=== PATIENT | male | born 1940 | race American Indian/Alaskan Native ===

== ENCOUNTER 2019-08-19 10:32 | Inpatient (IN) | payer MEDICARE, OTHER ==
[2019-08-19 12:01] LABS: Basophils # (Auto) 0.1 K/mm3 (0.0-0.1); Basophils % (Auto) 0.3 % (0.0-1.8); Eosinophils % (Auto) 0.1 % (0.0-4.3); Hematocrit 41.6 % (35.5-45.6); Hemoglobin 13.8 gm/dl (11.8-15.2); Lymphocytes # (Auto) 1.8 K/mm3 (1.2-5.4); Lymphocytes % (Auto) 10.1 % (13.4-35.0); Mean Corpuscular HGB Conc 33 % (32-34); Mean Corpuscular Volume 85 fl (84-94); Monocytes # (Auto) 2.1 K/mm3 (0.0-0.8); Monocytes % (Auto) 12.2 % (0.0-7.3); Platelet Count 147 K/mm3 (140-440); Red Blood Count 4.89 M/mm3 (3.65-5.03); Red Cell Distribution Width 13.3 % (13.2-15.2)
[2019-08-19 12:21] LABS: Alanine Aminotransferase 19 units/L (7-56); Albumin 3.8 g/dL (3.9-5); BUN/Creatinine Ratio 10; Blood Urea Nitrogen 11 mg/dL (9-20); Calcium 9.6 mg/dL (8.4-10.2); Hemolysis Index 11
--- NOTE | 2019-08-19 12:47 | XRay Report ---
CHEST 1 VIEW INDICATION: hypertension. COMPARISON: None FINDINGS: Support devices: None. Heart: Within normal limits. Lungs/Pleura: No acute air space or interstitial disease. Additional findings: None. IMPRESSION: No acute findings. Signer Name: Desean Cody Jr, MD Signed: 08/19/2019 12:43 PM Workstation Name: [id number]
[2019-08-19 14:01] LABS: Partial Thromboplastin Time 29.6 Sec. (24.2-36.6)
--- NOTE | 2019-08-19 14:12 | Cat Scan Report ---
CT ABDOMEN AND PELVIS WITH CONTRAST HISTORY: RLQ pain , lower GI bleed, leukocytosis, blood in stool for 2 days COMPARISON: None. TECHNIQUE: Axial CT images were obtained through the abdomen and pelvis after 100 cc of Omnipaque 300 intravenously. Sagittal and coronal reformatted images. All CT scans at this location are performed using CT dose reduction for ALARA by means of automated exposure control. FINDINGS: CT ABDOMEN: Lung Bases: Clear. Liver: No significant abnormality. Biliary: No significant abnormality. Spleen: No significant abnormality. Unenlarged. Pancreas: No significant abnormality. Adrenals: No significant abnormality. Kidneys: A 2 cm cyst is noted in the mid left kidney. A 4 mm calyceal stone is identified in the mid right kidney. No mass or hydronephrosis. Lymphatics: No lymphadenopathy. Vasculature: Moderate diffuse aortic and iliac calcifications. No aneurysm. Bowel/Peritoneum: There is suggestion of mild circumferential thickening of the distal transverse and proximal descending colon. A mild colitis could be considered. There is no evidence for obstruction or diverticulitis. There are a few scattered diverticula in the sigmoid region. Appendix is not confi dently identified. CT PELVIS: : The bladder and distal ureters are unremarkable. The prostate gland is mildly enlarged measuring 5.6 cm in diameter. Osseous Structures: Mild thoracolumbar spondylosis. Additional Findings: None IMPRESSION: Mild circumferential thickening of the distal colon is identified as described above suggesting a mil d nonspecific colitis. No obvious mass. Nonobstructing right renal stone. Left renal cyst. Atherosclerotic disease in the aorta and iliac arteries. Enlarged prostate gland. Signer Name: Desean Cody Jr, MD Signed: 08/19/2019 2:07 PM Workstation Name: [id number]
--- NOTE | 2019-08-19 14:13 | History and Physical Report ---
History of Present Illness Chief complaint: I see blood when I go to the bathroom History of present illness: 78-year-old male with HTN, DM S/P agent orange exposure presents to ED for evaluation. Patient states that he had experienced 6 episodes of blood in his stool over the past 3 days with increased volume of blood in his stool over the past 1 day. Patient also acknowledges generalized weakness, and multiple loose stools over the past 3 days with concomitant abdominal cramping. Patient transported to [facility] via private vehicle. Patient seen and evaluated in the ED. Lab and imaging studies reviewed. Patient found to have heme positive stool as well as symptoms consistent with lower GI bleed, colitis, systemic inflammatory response syndrome, as well as history of agent orange exposure during the [place]. Patient admitted to [facility] unit for medical stabilization due to high risk of decompensation secondary to worsening GI bleed. GI team consulted in ED. Patient initiated on PPI therapy as well as empiric IV antibiotic therapy.. Patient denies fever, chills, chest pain, palpitations, trauma, productive cough, skin rash, recent ill contacts. No prior admission for review. All medication listed at time of admission have been reconciled. Past History Past Medical History: diabetes, hypertension, other (Agent orange exposure, see HPI) Past Surgical History: No surgical history, Other Social history: . denies: smoking, alcohol abuse, prescription drug abuse Family history: diabetes, hypertension Medications and Allergies Allergies Allergy/AdvReac Type Severity Reaction Status Date / Time No Known Allergies Allergy Unverified 08/19/19 10:40 Home Medications Medication Instructions Recorded Confirmed Last Taken Type Amlodipine Besylate [Norvasc] 10 mg PO QDAY 08/19/19 08/19/19 08/18/19 History Aspirin 325 mg PO QDAY 08/19/19 08/19/19 08/18/19 History Doxycycline Hyclate [Doxycycline 100 mg PO Q12HR 08/19/19 08/19/19 08/18/19 History Hyclate TAB] Losartan [Cozaar] 50 mg PO QDAY 08/19/19 08/19/19 08/18/19 History Triamcinolone Aceton 0.1% (Nf) 1 applic TP BID 08/19/19 08/19/19 08/18/19 History [Kenalog (NF)] Review of Systems Constitutional: no weight loss, no weight gain, no fever, no chills Ears, nose, mouth and throat: no ear pain, no ear discharge, no tinnitis, no decreased hearing, no nasal congestion, no nasal discharge Cardiovascular: no chest pain, no rapid/irregular heart beat, no edema, no syncope, no lightheadedness Respiratory: no cough, no cough with sputum, no excessive sputum, no shortness of breath, no dyspnea on exertion Gastrointestinal: BRBPR, no abdominal pain, no nausea, no vomiting, no loss of appetite, no early satiety Genitourinary Male: no dysuria, no hematuria, no flank pain, no discharge, no urinary frequency, no urinary hesitancy Rectal: no pain, no incontinence, no itching, no hemorrhoids Musculoskeletal: no neck stiffness, no neck pain, no low back pain, no shooting leg pain, no redness of joints Integumentary: no rash, no pruritis, no redness, no sores, no wounds Neurological: no head injury, no transient paralysis, no paralysis, no weakness, no parathesias, no tingling, no seizures, no syncope Psychiatric: no anxiety, no change in sleep habits, no sleep disturbances, no hypersomnia, no change in appetite, no change in libido, no hallucinations Endocrine: no cold intolerance, no polyphagia, no excessive thirst, no polydipsia, no nocturia, no excessive sweating, no weight change Hematologic/Lymphatic: no easy bleeding, no lymphadenopathy, no lymphedema Allergic/Immunologic: no urticaria, no allergic rhinitis, no anaphylaxis Exam - Constitutional Vitals: Temp Pulse Resp BP Pulse Ox 97.4 F L 82 16 141/75 95 08/19/19 10:41 08/19/19 13:00 08/19/19 13:00 08/19/19 13:00 08/19/19 13:00 General appearance: Present: mild distress - EENT Eyes: Present: PERRL ENT: hearing intact, clear oral mucosa - Neck Neck: Present: supple, normal ROM - Respiratory Respiratory effort: normal Respiratory: bilateral: CTA - Cardiovascular Heart Sounds: Present: S1 & S2. Absent: rub, click - Extremities Extremities: pulses symmetrical, No edema Peripheral Pulses: within normal limits - Abdominal General gastrointestinal: Present: soft, non-tender, non-distended, normal bowel sounds Male genitourinary: Present: normal - Integumentary Integumentary: Present: clear, warm, dry - Musculoskeletal Musculoskeletal: gait normal, strength equal bilaterally - Psychiatric Psychiatric: appropriate mood/affect, intact judgment & insight - Neurologic Neurologic: CNII-XII intact, moves all extremities Results - Labs CBC & Chem 7: 08/19/19 11:21 08/19/19 11:21 Labs: Abnormal lab results 08/19/19 08/19/19 Range/Units 11:21 11:21 WBC 17.6 H (4.5-11.0) K/mm3 Lymph % (Auto) 10.1 L (13.4-35.0) % [place] % (Auto) 12.2 H (0.0-7.3) % [place] # 2.1 H (0.0-0.8) K/mm3 Seg Neutrophils % 77.3 H (40.0-70.0) % Seg Neutrophils # 13.6 H (1.8-7.7) K/mm3 Sodium 135 L (137-145) mmol/L Glucose 245 H (75-100) mg/dL Albumin 3.8 L (3.9-5) g/dL Assessment and Plan - Patient Problems (1) GI bleed Current Visit: Yes Status: Acute Plan to address problem: Admit to [facility] unit, serial CBC, IV PPI therapy, GI consulted in ED, empiric IV antibiotic therapy, supportive care. Will transfuse PRBCs if patient hemoglobin drops more than 2 g on serial CBC. (2) Colitis Current Visit: Yes Status: Acute Plan to address problem: Empiric IV antibiotic therapy, supportive care. Repeat CBC in a.m. GI consulted. (3) Systemic inflammatory response syndrome Current Visit: Yes Status: Acute Plan to address problem: IV antibiotic therapy, CBC, CMP, IV fluid resuscitation therapy as tolerated, repeat CBC in a.m., Chest x-ray, urinalysis. (4) DVT prophylaxis Current Visit: Yes Status: Acute Plan to address problem: SCD to bilateral lower extremities while in bed, hold anticoagulation for now due to GI bleed (5) Advance care planning Current Visit: Yes Status: Acute Plan to address problem: Patient is full code, disease education conducted at bedside, patient acknowledges understanding and agreement with care plan, +30 minutes. (6) H/O agent [place] exposure Current Visit: Yes Status: Acute Plan to address problem: Supportive care, treat diabetes mellitus.
[2019-08-19] MEDS ORDERED: HYDROmorphone 1 MG/1 ML INJ IV PRN (14:14)
[2019-08-19] MEDS ORDERED: ALBUTEROL 2.5 MG/3 ML NEBU IH PRN (14:14)
[2019-08-19] MEDS ORDERED: ONDANSETRON 4 MG/2 ML INJ IV PRN (14:14)
[2019-08-19] MEDS ORDERED: HYDROcodone/ACETAMINOPHEN 5-325 MG TAB PO PRN (14:14)
[2019-08-19] MEDS ORDERED: ACETAMINOPHEN 325 MG TAB PO PRN (14:14)
[2019-08-19 14:32] LABS: INR 1.16 (0.87-1.13)
[2019-08-19 14:33] LABS: Bilirubin,Urine NEG (Negative); Blood,Urine NEG (Negative); Color,Urine Straw (Yellow); Protein,Urine <15 mg/dL mg/dL (Negative); RBC,Urine < 1.0 /HPF (0.0-6.0); Urobilinogen,Urine < 2.0 mg/dL (<2.0); WBC,Urine < 1.0 /HPF (0.0-6.0)
--- NOTE | 2019-08-19 14:38 | Emergency Department Report ---
ED Abdominal Pain HPI - General Chief Complaint: GI Bleed Stated Complaint: BLOOD IN STOOL Time Seen by Provider: 08/19/19 12:01 Source: patient Mode of arrival: Ambulatory Limitations: No Limitations - History of Present Illness Initial Comments: This is a very pleasant 78-year-old male who is a bit scattered in the delivery of his history of the present illness. Makes persistent status to his time in [place] in the 70s. 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 He states that he often has to rub the right lower quadrant of his abdomen due to the keloid formation. He does finally state that he is here because he has had signs of blood in his stool for the past 3 days. He also complains of diarrhea during that period. He describes a dull ache in the right lower quadrant area which appears to be more than his usual discomfort as described above secondary to keloid. He denies fever or chills. Patient states that he did have a colonoscopy about 2 years ago with a polypectomy. He gives no history of colon cancer. Eyes a known history of diverticular disease. MD Complaint: abdominal pain -: Gradual, days(s) Location: RLQ Radiation: none Migration to: no migration Severity: moderate Severity scale (0 -10): 0 Quality: aching Consistency: intermittent Improves With: nothing Worsens With: nothing Context: other (diarrhea) Associated Symptoms: denies other symptoms, diarrhea, hematochezia Treatments Prior to Arrival: other (denies anticoagulants) - Related Data Home Medications Medication Instructions Recorded Confirmed Last Taken Amlodipine Besylate [Norvasc] 10 mg PO QDAY 08/19/19 08/19/19 08/18/19 Aspirin 325 mg PO QDAY 08/19/19 08/19/19 08/18/19 Doxycycline Hyclate [Doxycycline 100 mg PO Q12HR 08/19/19 08/19/19 08/18/19 Hyclate TAB] Losartan [Cozaar] 50 mg PO QDAY 08/19/19 08/19/19 08/18/19 Triamcinolone Aceton 0.1% (Nf) 1 applic TP BID 08/19/19 08/19/19 08/18/19 [Kenalog (NF)] Allergies Allergy/AdvReac Type Severity Reaction Status Date / Time No Known Allergies Allergy Unverified 08/19/19 10:40 ED Review of Systems ROS: Stated complaint: BLOOD IN STOOL Other details as noted in HPI Constitutional: denies: chills, fever Eyes: denies: eye pain, eye discharge, vision change ENT: denies: ear pain, throat pain Respiratory: denies: cough, shortness of breath, wheezing Cardiovascular: denies: chest pain, palpitations Endocrine: no symptoms reported Gastrointestinal: abdominal pain, diarrhea. denies: nausea Genitourinary: denies: urgency, dysuria Musculoskeletal: denies: back pain, joint swelling, arthralgia Skin: denies: rash, lesions Neurological: denies: headache, weakness, paresthesias Psychiatric: denies: anxiety, depression Hematological/Lymphatic: denies: easy bleeding, easy bruising ED Past Medical Hx - Past Medical History Previous Medical History?: Yes Hx Hypertension: Yes Hx Diabetes: Yes - Surgical History Additional Surgical History: appendectomy - Social History Smoking Status: Never Smoker - Medications Home Medications: Home Medications Medication Instructions Recorded Confirmed Last Taken Type Amlodipine Besylate [Norvasc] 10 mg PO QDAY 08/19/19 08/19/19 08/18/19 History Aspirin 325 mg PO QDAY 08/19/19 08/19/19 08/18/19 History Doxycycline Hyclate [Doxycycline 100 mg PO Q12HR 08/19/19 08/19/19 08/18/19 History Hyclate TAB] Losartan [Cozaar] 50 mg PO QDAY 08/19/19 08/19/19 08/18/19 History Triamcinolone Aceton 0.1% (Nf) 1 applic TP BID 08/19/19 08/19/19 08/18/19 History [Kenalog (NF)] ED Physical Exam - General Limitations: No Limitations General appearance: alert, in no apparent distress - Head Head exam: Present: atraumatic, normocephalic - Eye Eye exam: Present: normal appearance. Absent: scleral icterus - ENT ENT exam: Present: mucous membranes moist - Neck Neck exam: Present: normal inspection - Respiratory Respiratory exam: Present: normal lung sounds bilaterally. Absent: respiratory distress - Cardiovascular Cardiovascular Exam: Present: regular rate, normal rhythm. Absent: systolic murmur, diastolic murmur, rubs, gallop - GI/Abdominal GI/Abdominal exam: Present: soft, tenderness (no significant tenderness to palpation in the right lower quadrant), normal bowel sounds. Absent: distended, guarding, rebound, rigid - Rectal Rectal exam: Present: deferred - Extremities Exam Extremities exam: Present: normal inspection - Back Exam Back exam: Present: normal inspection - Neurological Exam Neurological exam: Present: alert, oriented X3, CN II-XII intact. Absent: motor sensory deficit - Psychiatric Psychiatric exam: Present: normal affect, normal mood - Skin Skin exam: Present: warm, dry, intact, other (he will information on the chest and the right lower quadrant of the abdomen associated with previous appendectomy.). Absent: rash ED Course Vital Signs 08/19/19 08/19/19 08/19/19 10:41 11:20 11:21 Temperature 97.4 F L Pulse Rate 91 H 79 76 Respiratory 16 12 16 Rate Blood Pressure 117/43 Blood Pressure 120/54 [Left] O2 Sat by Pulse 97 99 Oximetry 08/19/19 08/19/19 08/19/19 11:30 11:45 12:00 Temperature Pulse Rate 75 69 71 Respiratory 18 17 22 Rate Blood Pressure 125/61 139/65 147/74 Blood Pressure [Left] O2 Sat by Pulse 97 98 98 Oximetry 08/19/19 08/19/19 08/19/19 12:15 12:30 12:46 Temperature Pulse Rate 80 73 84 Respiratory 12 15 23 Rate Blood Pressure 141/75 131/65 141/75 Blood Pressure [Left] O2 Sat by Pulse 99 97 97 Oximetry 08/19/19 08/19/19 08/19/19 13:00 13:16 13:38 Temperature Pulse Rate 82 75 90 Respiratory 16 12 Rate Blood Pressure 141/75 141/75 141/75 Blood Pressure [Left] O2 Sat by Pulse 95 99 98 Oximetry 08/19/19 08/19/19 08/19/19 13:46 14:00 14:18 Temperature Pulse Rate 77 72 Respiratory 15 14 Rate Blood Pressure 141/75 141/75 141/75 Blood Pressure [Left] O2 Sat by Pulse 96 96 97 Oximetry - Reevaluation(s) Reevaluation #1: Patient was referred to Dr. Moreno further care and evaluation. He was found to have a white count 17.6. His hemoglobin was 13.8. His rectal exam showed no mass but there was 3-4+ positive brown loose stool. His CT was consistent with mild colitis. He was given Flagyl by Dr. Moreno and admitted. I will order a C. difficile. 08/19/19 14:37 ED Medical Decision Making - Lab Data Result diagrams: 08/19/19 11:21 08/19/19 11:21 Laboratory Results - last 24 hr 08/19/19 08/19/19 08/19/19 11:21 11:21 11:25 WBC 17.6 H RBC 4.89 Hgb 13.8 Hct 41.6 MCV 85 MCH 28 MCHC 33 RDW 13.3 Plt Count 147 Lymph % (Auto) 10.1 L [place] % (Auto) 12.2 H Eos % (Auto) 0.1 Baso % (Auto) 0.3 Lymph # 1.8 Cassia # 2.1 H Eos # 0.0 Baso # 0.1 Seg Neutrophils % 77.3 H Seg Neutrophils # 13.6 H PT INR APTT Sodium 135 L Potassium 4.2 Chloride 98.8 Carbon Dioxide 22 Anion Gap 18 BUN 11 Creatinine 1.1 Estimated GFR > 60 BUN/Creatinine Ratio 10 Glucose 245 H Lactic Acid Calcium 9.6 Magnesium Total Bilirubin 0.70 AST 22 ALT 19 Alkaline Phosphatase 63 NT-Pro-B Natriuret Pep Total Protein 6.9 Albumin 3.8 L Albumin/Globulin Ratio 1.2 Blood Type A POSITIVE Antibody Screen Negative 08/19/19 08/19/19 08/19/19 12:57 12:57 12:57 WBC RBC Hgb Hct MCV MCH MCHC RDW Plt Count Lymph % (Auto) [place] % (Auto) Eos % (Auto) Baso % (Auto) Lymph # Cassia # Eos # Baso # Seg Neutrophils % Seg Neutrophils # PT 15.0 H INR 1.16 H APTT 29.6 Sodium Potassium Chloride Carbon Dioxide Anion Gap BUN Creatinine Estimated GFR BUN/Creatinine Ratio Glucose Lactic Acid 1.90 Calcium Magnesium 2.30 Total Bilirubin AST ALT Alkaline Phosphatase NT-Pro-B Natriuret Pep 429.6 Total Protein Albumin Albumin/Globulin Ratio Blood Type Antibody Screen - Radiology Data Radiology results: report reviewed Mild colitis (colon thickening) no other inflammatory processes found on CT. Critical care attestation.: If time is entered above; I have spent that time in minutes in the direct care of this critically ill patient, excluding procedure time. ED Disposition Clinical Impression: Colitis, Lower GI bleeding Disposition: DC OP ADMIT IP TO THIS HOSP Is pt being admited?: Yes Does the pt Need Aspirin: No (hold aspirin due to GI bleeding)
[2019-08-19] MEDS: metroNIDAZOLE/NS 500 MG/100 ML 500 MG/100 ML BAG IV SCH (22:39)
[2019-08-19] MEDS: PANTOPRAZOLE 40 MG INJ IV SCH (22:40)
[2019-08-20 06:05] LABS: Basophils # (Auto) 0.1 K/mm3 (0.0-0.1); Basophils % (Auto) 0.6 % (0.0-1.8); Eosinophils # (Auto) 0.1 K/mm3 (0.0-0.4); Eosinophils % (Auto) 0.8 % (0.0-4.3); Hematocrit 40.7 % (35.5-45.6); Hemoglobin 13.6 gm/dl (11.8-15.2); Lymphocytes # (Auto) 2.1 K/mm3 (1.2-5.4); Lymphocytes % (Auto) 17.4 % (13.4-35.0); Mean Corpuscular HGB Conc 33 % (32-34); Mean Corpuscular Volume 85 fl (84-94); Monocytes # (Auto) 1.6 K/mm3 (0.0-0.8); Monocytes % (Auto) 13.2 % (0.0-7.3); Platelet Count 138 K/mm3 (140-440); Red Cell Distribution Width 13.6 % (13.2-15.2)
[2019-08-20 06:21] LABS: Alanine Aminotransferase 17 units/L (7-56); Albumin 3.3 g/dL (3.9-5); BUN/Creatinine Ratio 12; Blood Urea Nitrogen 12 mg/dL (9-20); Hemolysis Index 14
[2019-08-20] MEDS: metroNIDAZOLE/NS 500 MG/100 ML 500 MG/100 ML BAG IV SCH ×3 (06:22→23:13)
[2019-08-20] MEDS: TRIAMCINOLONE ACETON 0.1% TP SCH ×2 (07:34→10:00)
[2019-08-20] MEDS ORDERED: DEXTROSE 50% IN WATER (25GM) 50 ML SYRINGE IV PRN (08:57)
--- NOTE | 2019-08-20 09:36 | Progress Note ---
Assessment and Plan Assessment and plan: 78-year-old male with HTN, DM S/P agent orange exposure presents to ED for evaluation. Patient states that he had experienced 6 episodes of blood in his stool over the past 3 days with increased volume of blood in his stool over the past 1 day. Patient also acknowledges generalized weakness, and multiple loose stools over the past 3 days with concomitant abdominal cramping. Patient transported to [facility] via private vehicle. Patient seen and evaluated in the ED. Lab and imaging studies reviewed. Patient found to have heme positive stool as well as symptoms consistent with lower GI bleed, colitis, systemic inflammatory response syndrome, as well as history of agent orange exposure during the War. Patient admitted to [facility] unit for medical stabilization due to high risk of decompensation secondary to worsening GI bleed. GI team consulted in ED. Patient initiated on PPI therapy as well as empiric IV antibiotic therapy.. Patient denies fever, chills, chest pain, palpitations, trauma, productive cough, skin rash, recent ill contacts. No prior admission for review. All medication listed at time of admission have been reconciled. Radiology results: report reviewed Mild colitis (colon thickening) no other inflammatory processes found on CT. * WBC improving, no further diarhea or vomiting but the patient has not been started on diet * Will start on diet and monitor patient overnight, if remains stable will discharge with 14 days abx therapy and outpatient GI eval for colonosocopy Colitis Likely Infectious GI bleed likely secondary to the Colitis, H/H Has remained stable SIRS without organ dysfunction DM with Hyperglycemia H/O agent [place] exposure Mild Dementia per patient Plan Continue supportive care Patient on NOVASTAR 36 units subq at home per patient will start on lantus start full liquid Await GI eval Continue abx Monitor H/H, repeat if profound bleeding noted Anticipate discharge in am if stable Plan of care discussed with the patient and Nursing staff. No family at bedside History Interval history: Patient seen and examined, reports improvement in abdominal bloating but still with a 5/10 pain. Denies any fever, reports large vomiting prior to admission. No BM since admission per nursing staff. Hospitalist Physical - Physical exam Narrative exam: General appearance: Present: mild distress - EENT Eyes: Present: PERRL ENT: hearing intact, clear oral mucosa - Neck Neck: Present: supple, normal ROM - Respiratory Respiratory effort: normal Respiratory: bilateral: CTA - Cardiovascular Heart Sounds: Present: S1 & S2. Absent: rub, click - Extremities Extremities: pulses symmetrical, No edema Peripheral Pulses: within normal limits - Abdominal General gastrointestinal: Present: soft, mildly distended but better per patient, normal bowel sounds Male genitourinary: Present: normal - Integumentary Integumentary: Present: clear, warm, dry, Abdominal keloids, Suprapubic and across the chest - Musculoskeletal Musculoskeletal: gait normal, strength equal bilaterally - Psychiatric Psychiatric: appropriate mood/affect, intact judgment & insight - Neurologic Neurologic: CNII-XII intact, moves all extremities - Constitutional Vitals: Temp Pulse Resp BP Pulse Ox 99.0 F 83 18 134/60 98 08/20/19 07:41 08/20/19 07:41 08/20/19 07:41 08/20/19 07:41 08/20/19 07:41 General appearance: Present: mild distress Results - Labs CBC & Chem 7: 08/20/19 04:48 08/20/19 04:48 Labs: Laboratory Last Values WBC 12.3 K/mm3 (4.5-11.0) H 08/20/19 04:48 RBC 4.80 M/mm3 (3.65-5.03) 08/20/19 04:48 Hgb 13.6 gm/dl (11.8-15.2) 08/20/19 04:48 Hct 40.7 % (35.5-45.6) 08/20/19 04:48 MCV 85 fl (84-94) 08/20/19 04:48 MCH 28 pg (28-32) 08/20/19 04:48 MCHC 33 % (32-34) 08/20/19 04:48 RDW 13.6 % (13.2-15.2) 08/20/19 04:48 Plt Count 138 K/mm3 (140-440) L 08/20/19 04:48 Lymph % (Auto) 17.4 % (13.4-35.0) 08/20/19 04:48 [place] % (Auto) 13.2 % (0.0-7.3) H 08/20/19 04:48 Eos % (Auto) 0.8 % (0.0-4.3) 08/20/19 04:48 Baso % (Auto) 0.6 % (0.0-1.8) 08/20/19 04:48 Lymph # 2.1 K/mm3 (1.2-5.4) 08/20/19 04:48 [place] # 1.6 K/mm3 (0.0-0.8) H 08/20/19 04:48 Eos # 0.1 K/mm3 (0.0-0.4) 08/20/19 04:48 Baso # 0.1 K/mm3 (0.0-0.1) 08/20/19 04:48 Seg Neutrophils % 68.0 % (40.0-70.0) 08/20/19 04:48 Seg Neutrophils # 8.4 K/mm3 (1.8-7.7) H 08/20/19 04:48 PT 15.0 Sec. (12.2-14.9) H 08/19/19 12:57 INR 1.16 (0.87-1.13) H 08/19/19 12:57 APTT 29.6 Sec. (24.2-36.6) 08/19/19 12:57 Sodium 137 mmol/L (137-145) 08/20/19 04:48 Potassium 4.7 mmol/L (3.6-5.0) 08/20/19 04:48 Chloride 98.7 mmol/L (98-107) 08/20/19 04:48 Carbon Dioxide 28 mmol/L (22-30) 08/20/19 04:48 Anion Gap 15 mmol/L 08/20/19 04:48 BUN 12 mg/dL (9-20) 08/20/19 04:48 Creatinine 1.0 mg/dL (0.8-1.5) 08/20/19 04:48 Estimated GFR > 60 ml/min 08/20/19 04:48 BUN/Creatinine Ratio 12 % 08/20/19 04:48 Glucose 237 mg/dL (75-100) H 08/20/19 04:48 POC Glucose 170 (70-105) H 08/19/19 18:27 Hemoglobin A1c 10.1 % (4-6) H 08/20/19 04:48 Lactic Acid 1.90 mmol/L (0.7-2.0) 08/19/19 12:57 Calcium 9.0 mg/dL (8.4-10.2) 08/20/19 04:48 Magnesium 2.30 mg/dL (1.7-2.3) 08/19/19 12:57 Total Bilirubin 0.50 mg/dL (0.1-1.2) 08/20/19 04:48 AST 20 units/L (5-40) 08/20/19 04:48 ALT 17 units/L (7-56) 08/20/19 04:48 Alkaline Phosphatase 60 units/L (35-129) 08/20/19 04:48 NT-Pro-B Natriuret Pep 429.6 pg/mL (0-900) 08/19/19 12:57 Total Protein 6.3 g/dL (6.3-8.2) 08/20/19 04:48 Albumin 3.3 g/dL (3.9-5) L 08/20/19 04:48 Albumin/Globulin Ratio 1.1 % 08/20/19 04:48 Urine Color Straw (Yellow) 08/19/19 Unknown Urine Turbidity Clear (Clear) 08/19/19 Unknown Urine pH 6.0 (5.0-7.0) 08/19/19 Unknown Ur Specific [place] 1.023 (1.003-1.030) 08/19/19 Unknown Urine Protein <15 mg/dl mg/dL (Negative) 08/19/19 Unknown Urine Glucose (UA) 50 mg/dL (Negative) 08/19/19 Unknown Urine Ketones Neg mg/dL (Negative) 08/19/19 Unknown Urine Blood Neg (Negative) 08/19/19 Unknown Urine Nitrite Neg (Negative) 08/19/19 Unknown Urine Bilirubin Neg (Negative) 08/19/19 Unknown Urine Urobilinogen < 2.0 mg/dL (<2.0) 08/19/19 Unknown Ur Leukocyte Esterase Neg (Negative) 08/19/19 Unknown Urine WBC (Auto) < 1.0 /HPF (0.0-6.0) 08/19/19 Unknown Urine RBC (Auto) < 1.0 /HPF (0.0-6.0) 08/19/19 Unknown Blood Type A POSITIVE 08/19/19 11:25 Antibody Screen Negative 08/19/19 11:25 Active Medications - Current Medications Current Medications: Generic Name Dose Route Start Last Admin Trade Name Freq PRN Reason Stop Dose Admin Acetaminophen 650 mg 08/19/19 14:14 Tylenol PO Q4H PRN Pain MILD(1-3)/Fever >100.5/VELASQUEZ Acetaminophen/Hydrocodone Bitart 2 each 08/19/19 14:14 [place] 5/325 PO Q6H PRN Pain, Moderate (4-6) Albuterol 2.5 mg 08/19/19 14:14 Proventil IH Q4HRT PRN Shortness Of Breath Amlodipine Besylate 10 mg 08/20/19 10:00 Amlodipine PO QDAY AVELINA Dextrose 50 ml 08/20/19 08:57 D50w (25gm) Syringe IV Q30MIN PRN Hypoglycemia Protocol Hydromorphone HCl 0.5 mg 08/19/19 14:14 Dilaudid IV Q3H PRN Pain , Severe (7-10) Metronidazole 500 mg in 100 mls @ 100 mls/hr 08/19/19 22:00 08/20/19 06:22 Flagyl 500 Mg/100 Ml IV 100 mls/hr Q8HR AVELINA Administration Protocol Levofloxacin/Dextrose 500 mg in 100 mls @ 100 mls/hr 08/19/19 14:18 08/19/19 15:08 Levaquin 500mg/100ml IV 100 mls/hr Q24HR AVELINA Administration Protocol Insulin Human Lispro 0 unit 08/20/19 11:30 Humalog SUB-Q ACHS AVELINA Protocol Losartan Potassium 50 mg 08/20/19 10:00 Cozaar PO QDAY [facility] Miscellaneous Medication 1 applic 08/19/19 22:00 08/20/19 07:34 Triamcinolone Aceton 0.1% (Nf) TP Not Given BID [facility] Ondansetron HCl 4 mg 08/19/19 14:14 Zofran IV Q8H PRN Nausea And Vomiting Pantoprazole Sodium 40 mg 08/19/19 22:00 08/19/19 22:40 Protonix IV 40 mg BID AVELINA Administration Sodium Chloride 10 ml 08/19/19 22:00 08/20/19 07:34 Sodium Chloride Flush Syringe 10 Ml IV Not Given BID [facility] Sodium Chloride 10 ml 08/19/19 14:14 Sodium Chloride Flush Syringe 10 Ml IV PRN PRN LINE FLUSH
[2019-08-20] MEDS: amLODIPine 5 MG TAB PO SCH (10:10)
[2019-08-20] MEDS: LOSARTAN 50 MG TAB PO SCH (10:10)
[2019-08-20] MEDS: PANTOPRAZOLE 40 MG INJ IV SCH ×2 (10:10→23:12)
[2019-08-20] MEDS: INSULIN LISPRO 100 UNIT/ML SUB-Q SCH ×3 (12:05→23:13)
--- NOTE | 2019-08-20 15:01 | Gastroenterology Consultation ---
History of Present Illness - Reason for Consult Consult date: 08/20/19 colitis Requesting physician: SONIA PERRY - History of Present Illness This is a 78 yo male with pmh of HTN and DM admitted overnight for blood in the stool and diarrhea. Patient reports having 3 days of diarrhea, abdominal pain, and nausea/vomiting. He had blood red blood in the stool and dark material in his emesis. Since admission, no vomiting episode and no stool today. He reports feeling better. CT a/p showed signs of colitis. He is on PPI and empiric antibiotics. Reports having been on antibiotics as outpatient for skin lesions. Last colonoscopy [address] Stock but unsure of the details. Medication list updated and reviewed. Past History Past Medical History: diabetes, hypertension, other (Agent orange exposure, see HPI) Past Surgical History: No surgical history, Other Social history: . denies: smoking, alcohol abuse, prescription drug abuse Family history: diabetes, hypertension Medications and Allergies Allergies Allergy/AdvReac Type Severity Reaction Status Date / Time No Known Allergies Allergy Unverified 08/19/19 10:40 Home Medications Medication Instructions Recorded Confirmed Last Taken Type Amlodipine Besylate [Norvasc] 10 mg PO QDAY 08/19/19 08/19/19 08/18/19 History Aspirin 325 mg PO QDAY 08/19/19 08/19/19 08/18/19 History Doxycycline Hyclate [Doxycycline 100 mg PO Q12HR 08/19/19 08/19/19 08/18/19 History Hyclate TAB] Losartan [Cozaar] 50 mg PO QDAY 08/19/19 08/19/19 08/18/19 History Triamcinolone Aceton 0.1% (Nf) 1 applic TP BID 08/19/19 08/19/19 08/18/19 History [Kenalog (NF)] Active Meds: Active Medications Acetaminophen (Tylenol) 650 mg PO Q4H PRN PRN Reason: Pain MILD(1-3)/Fever >100.5/[place] Acetaminophen/Hydrocodone Bitart ([place] 5/325) 2 each PO Q6H PRN PRN Reason: Pain, Moderate (4-6) Albuterol (Proventil) 2.5 mg IH Q4HRT PRN PRN Reason: Shortness Of Breath Amlodipine Besylate (Amlodipine) 10 mg PO QDAY [facility] Last Admin: 08/20/19 10:10 Dose: 10 mg Documented by: Dextrose (D50w (25gm) Syringe) 50 ml IV Q30MIN PRN; Protocol PRN Reason: Hypoglycemia Hydromorphone HCl (Dilaudid) 0.5 mg IV Q3H PRN PRN Reason: Pain , Severe (7-10) Metronidazole (Flagyl 500 Mg/100 Ml) 500 mg in 100 mls @ 100 mls/hr IV Q8HR [facility]; Protocol Last Admin: 08/20/19 14:06 Dose: 100 mls/hr Documented by: Levofloxacin/Dextrose (Levaquin 500mg/100ml) 500 mg in 100 mls @ 100 mls/hr IV Q24HR [facility]; Protocol Last Admin: 08/20/19 10:10 Dose: 100 mls/hr Documented by: Insulin Glargine (Lantus) 25 units SUB-Q QHS [facility] Insulin Human Lispro (Humalog) 0 unit SUB-Q ACHS [facility]; Protocol Last Admin: 08/20/19 12:05 Dose: 3 unit Documented by: Losartan Potassium (Cozaar) 50 mg PO QDAY [facility] Last Admin: 08/20/19 10:10 Dose: 50 mg Documented by: Miscellaneous Medication (Triamcinolone Aceton 0.1% (Nf)) 1 applic TP BID [facility] Last Admin: 08/20/19 10:00 Dose: 1 applic Documented by: Ondansetron HCl (Zofran) 4 mg IV Q8H PRN PRN Reason: Nausea And Vomiting Pantoprazole Sodium (Protonix) 40 mg IV BID [facility] Last Admin: 08/20/19 10:10 Dose: 40 mg Documented by: Sodium Chloride (Sodium Chloride Flush Syringe 10 Ml) 10 ml IV BID [facility] Last Admin: 08/20/19 10:10 Dose: 10 ml Documented by: Sodium Chloride (Sodium Chloride Flush Syringe 10 Ml) 10 ml IV PRN PRN PRN Reason: LINE FLUSH Review of Systems - Review of Systems All systems: negative Constitutional: no weight loss Cardiovascular: no chest pain Respiratory: no shortness of breath Gastrointestinal: abdominal pain, nausea, vomiting, diarrhea, hematochezia Neurological: weakness Exam - Constitutional Vital Signs: Temp Pulse Resp BP Pulse Ox 97.9 F 83 18 147/62 97 08/20/19 13:08 08/20/19 13:08 08/20/19 13:08 08/20/19 13:08 08/20/19 13:08 General appearance: no acute distress - EENT Eyes: EOM intact - Neck Neck: supple - Respiratory Respiratory effort: normal - Cardiovascular Rhythm: regular Heart Sounds: Present: S1 & S2 - Gastrointestinal General gastrointestinal: Present: soft, non-tender, non-distended, normal bowel sounds - Integumentary Integumentary: Present: clear, warm - Neurologic Neurological: alert and oriented x3 - Psychiatric Psychiatric: appropriate mood/affect - Labs CBC & Chem 7: 08/20/19 04:48 08/20/19 04:48 Lab Results: Laboratory Results - last 24 hr 08/19/19 08/20/19 08/20/19 18:27 04:48 04:48 WBC 12.3 H RBC 4.80 Hgb 13.6 Hct 40.7 MCV 85 MCH 28 MCHC 33 RDW 13.6 Plt Count 138 L Lymph % (Auto) 17.4 [place] % (Auto) 13.2 H Eos % (Auto) 0.8 Baso % (Auto) 0.6 Lymph # 2.1 [place] # 1.6 H Eos # 0.1 Baso # 0.1 Seg Neutrophils % 68.0 Seg Neutrophils # 8.4 H Sodium 137 Potassium 4.7 Chloride 98.7 Carbon Dioxide 28 Anion Gap 15 BUN 12 Creatinine 1.0 Estimated GFR > 60 BUN/Creatinine Ratio 12 Glucose 237 H POC Glucose 170 H Hemoglobin A1c Calcium 9.0 Total Bilirubin 0.50 AST 20 ALT 17 Alkaline Phosphatase 60 Total Protein 6.3 Albumin 3.3 L Albumin/Globulin Ratio 1.1 08/20/19 08/20/19 04:48 11:21 WBC RBC Hgb Hct MCV MCH MCHC RDW Plt Count Lymph % (Auto) [place] % (Auto) Eos % (Auto) Baso % (Auto) Lymph # [place] # Eos # Baso # Seg Neutrophils % Seg Neutrophils # Sodium Potassium Chloride Carbon Dioxide Anion Gap BUN Creatinine Estimated GFR BUN/Creatinine Ratio Glucose POC Glucose 190 H Hemoglobin A1c 10.1 H Calcium Total Bilirubin AST ALT Alkaline Phosphatase Total Protein Albumin Albumin/Globulin Ratio - Imaging CT Scan: report reviewed Assessment and Plan This is a 78 yo male with pmh of HTN and DM admitted overnight for blood in the stool and diarrhea. Patient reports having 3 days of diarrhea, abdominal pain, and nausea/vomiting. # Diarrhea # Hematochezia # Nausea/vomiting - likely 2/2 colitis. - CT a/p showing distal colon wall thickening. - clinically improving with empiric antibiotics. No stool today. - H/H stable and normal. Rec: - continue with empiric antibiotics. - if having diarrhea, recommend sending samples for stool studies including c diff. - will monitor clinically. No plans for endoscopy at this time.
[2019-08-20] MEDS ORDERED: INSULIN GLARGINE 100 UNITS/ML SUB-Q SCH (22:00)
[2019-08-21] MEDS: TRIAMCINOLONE ACETON 0.1% TP SCH (00:42)
[2019-08-21] MEDS: metroNIDAZOLE/NS 500 MG/100 ML 500 MG/100 ML BAG IV SCH (06:03)
[2019-08-21 06:18] LABS: Hematocrit 38.9 % (35.5-45.6); Hemoglobin 13.2 gm/dl (11.8-15.2); Mean Corpuscular HGB Conc 34 % (32-34); Mean Corpuscular Volume 84 fl (84-94); Platelet Count 141 K/mm3 (140-440); Red Blood Count 4.62 M/mm3 (3.65-5.03); Red Cell Distribution Width 13.1 % (13.2-15.2)
[2019-08-21 06:35] LABS: BUN/Creatinine Ratio 12; Blood Urea Nitrogen 13 mg/dL (9-20); Hemolysis Index 120
--- NOTE | 2019-08-21 07:53 | Discharge Summary ---
Providers - Providers Date of Admission: 08/19/19 14:14 Attending physician: KALPANA LIND MD 08/19/19 20:25 Consult to Physician [CONS] Routine Comment: Consulting Provider: GREG STAFFORD Physician Instructions: Reason For Exam: gi bleed Primary care physician: [employer] Hospitalization Reason for admission: colitis Condition: Stable Hospital course: 78-year-old male with HTN, DM S/P agent orange exposure presents to ED for evaluation. Patient states that he had experienced 6 episodes of blood in his stool over the past 3 days with increased volume of blood in his stool over the past 1 day. Patient also acknowledges generalized weakness, and multiple loose stools over the past 3 days with concomitant abdominal cramping. Patient transported to [facility] via private vehicle. Patient seen and evaluated in the ED. Lab and imaging studies reviewed. Patient found to have heme positive stool as well as symptoms consistent with lower GI bleed, colitis, systemic inflammatory response syndrome, as well as history of agent orange exposure during the [place] War. Patient admitted to [facility] unit for medical stabilization due to high risk of decompensation secondary to worsening GI bleed. GI team consulted in ED. Patient initiated on PPI therapy as well as empiric IV antibiotic therapy. Patient denies fever, chills, chest pain, palpitations, trauma, productive cough, skin rash, recent ill contacts. Radiology results: report reviewed Mild colitis (colon thickening) no other inflammatory processes found on CT. * WBC improving, no further diarrhea or vomiting but the patient has not been started on diet * Will start on diet and monitor patient overnight, if remains stable will discharge with 14 days abx therapy and outpatient GI eval for colonosocopy * Patient was seen by GI and recommending to * Rec: - continue with empiric antibiotics. - if having diarrhea, recommend sending samples for stool studies including c diff. - will monitor clinically. No plans for endoscopy at this time. Patient confirmed that he had a non bloody BM today. He is stable for discharge, Hemoglobin is also stable. Assessment Colitis Likely Infectious GI bleed likely secondary to the Colitis, H/H Has remained stable SIRS without organ dysfunction DM with Hyperglycemia H/O agent [place] exposure Mild Dementia per patient Disposition: TO HOME OR SELFCARE Time spent for discharge: 35 mins Core Measure Documentation - Palliative Care Palliative Care/ Comfort Measures: Not Applicable - Core Measures Any of the following diagnoses?: none Exam - Physical Exam Narrative exam: General appearance: Present: mild distress - EENT Eyes: Present: PERRL ENT: hearing intact, clear oral mucosa - Neck Neck: Present: supple, normal ROM - Respiratory Respiratory effort: normal Respiratory: bilateral: CTA - Cardiovascular Heart Sounds: Present: S1 & S2. Absent: rub, click - Extremities Extremities: pulses symmetrical, No edema Peripheral Pulses: within normal limits - Abdominal General gastrointestinal: Present: soft, mildly distended but better per patient, normal bowel sounds Male genitourinary: Present: normal - Integumentary Integumentary: Present: clear, warm, dry, Abdominal keloids, Suprapubic and across the chest - Musculoskeletal Musculoskeletal: gait normal, strength equal bilaterally - Psychiatric Psychiatric: appropriate mood/affect, intact judgment & insight - Neurologic Neurologic: CNII-XII intact, moves all extremities - Constitutional Vitals: Temp Pulse Resp BP Pulse Ox 98.5 F 20 L 20 128/72 98 08/21/19 02:50 08/21/19 02:50 08/20/19 20:12 08/21/19 02:47 08/21/19 02:47 Plan Activity: advance as tolerated, fall precautions Diet: diabetic Special Instructions: record daily BP diary, record blood sugar diary Additional Instructions: Follow with MD doctors Follow up with: PRIMARY CARE,MD [Primary Care Provider] - [facility]Outside] - [facility] Days Forms: Accompanied Note Prescriptions: metroNIDAZOLE [Flagyl] 500 mg PO Q8HR #21 tablet Saccharomyces Boulardii [Florastor] 250 mg PO DAILY #30 capsule levoFLOXacin [Levaquin] 750 mg PO QDAY #7 tablet
[2019-08-21] MEDS: INSULIN LISPRO 100 UNIT/ML SUB-Q SCH (08:18)
[2019-08-21 08:55] VITALS: BP 118/59
[2019-08-21] MEDS: LOSARTAN 50 MG TAB PO SCH (09:31)
[2019-08-21] MEDS: amLODIPine 5 MG TAB PO SCH (09:32)
[2019-08-21] MEDS: PANTOPRAZOLE 40 MG INJ IV SCH (09:32)
== END 2019-08-21 13:38 | disposition home or self-care (01) | DRG 392 ==
LOC: ED 10:32 → 2B-ACE 14:14
PROVIDERS: ADMIT Internal Medicine; ATTEND Internal Medicine
DX: A09 Infectious gastroenteritis and colitis, unspecified (principal); K92.2 Gastrointestinal hemorrhage, unspecified; R65.10 Systemic inflammatory response syndrome (SIRS) of non-infectious origin without acute organ dysfunction; I10 Essential (primary) hypertension; E11.65 Type 2 diabetes mellitus with hyperglycemia; F03.90 Unspecified dementia, unspecified severity, without behavioral disturbance, psychotic disturbance, mood disturbance, and anxiety
CPT/HCPCS: 36415; 71045; 74177; 80048; 80053; 81001; 82140; 82962; 83036; 83735; 83880; 85025; 85027; 85610; 85730; 86850; 86900; 86901; 87040; 87086; 93005; 93010; 96374; G0378; C9113; J1815; J1956; J3246; Q9967

== ENCOUNTER 2019-09-06 07:31 | Emergency (ER) | payer SELFPAY ==
[2019-09-06 08:31] LABS: Basophils # (Auto) 0.1 K/mm3 (0.0-0.1); Basophils % (Auto) 0.7 % (0.0-1.8); Eosinophils # (Auto) 0.1 K/mm3 (0.0-0.4); Eosinophils % (Auto) 1.1 % (0.0-4.3); Hemoglobin 13.3 gm/dl (11.8-15.2); Lymphocytes # (Auto) 1.8 K/mm3 (1.2-5.4); Lymphocytes % (Auto) 20.5 % (13.4-35.0); Mean Corpuscular HGB Conc 33 % (32-34); Mean Corpuscular Volume 86 fl (84-94); Monocytes # (Auto) 1.1 K/mm3 (0.0-0.8); Monocytes % (Auto) 12.9 % (0.0-7.3); Platelet Count 196 K/mm3 (140-440); Red Blood Count 4.78 M/mm3 (3.65-5.03); Red Cell Distribution Width 13.5 % (13.2-15.2)
[2019-09-06 08:54] LABS: Alanine Aminotransferase 15 units/L (7-56); Albumin 3.7 g/dL (3.9-5); BUN/Creatinine Ratio 15; Blood Urea Nitrogen 15 mg/dL (9-20); Calcium 9.5 mg/dL (8.4-10.2); Hemolysis Index 44
[2019-09-06] MEDS ORDERED: PANTOPRAZOLE 40 MG TAB PO ONE (09:47)
[2019-09-06] MEDS ORDERED: metroNIDAZOLE 500 MG TAB PO ONE (09:49)
[2019-09-06] MEDS ORDERED: levoFLOXacin 500 MG TAB PO ONE (09:49)
--- NOTE | 2019-09-06 09:49 | Emergency Department Report ---
ED Abdominal Pain HPI - General Chief Complaint: Abdominal Pain Stated Complaint: ABD PAIN Time Seen by Provider: 09/06/19 09:32 Source: patient Mode of arrival: Ambulatory Limitations: No Limitations - History of Present Illness Initial Comments: Patient is a 78-year-old -[place] male who comes to the ER today complaining of abdominal pain. He states it feels like a contraction in the right lower quadrant. Patient was discharged from the hospital recently with a GI bleed. He unfortunately was not able to get the medications prescribed at discharge which included Flagyl and Levaquin until yesterday. He did take 1 dose of the medicine. He states there was a delay in getting the medications from the NH. He came to the ER thinking that it was the medicine making him have the pain. Patient denies fever or chills. He denies nausea vomiting or diarrhea. He denies bloody stools. Patient denies shortness of breath or chest pain. Patient is ambulatory and nontoxic on exam. Vital signs were normal on triage. - Related Data Home Medications Medication Instructions Recorded Confirmed Last Taken Amlodipine Besylate [Norvasc] 10 mg PO QDAY 08/19/19 08/19/19 08/18/19 Aspirin 325 mg PO QDAY 08/19/19 08/19/19 08/18/19 Doxycycline Hyclate [Doxycycline 100 mg PO Q12HR 08/19/19 08/19/19 08/18/19 Hyclate TAB] Losartan [Cozaar] 50 mg PO QDAY 08/19/19 08/19/19 08/18/19 Triamcinolone Aceton 0.1% (Nf) 1 applic TP BID 08/19/19 08/19/19 08/18/19 [Kenalog (NF)] Previous Rx's Medication Instructions Recorded Last Taken Type levoFLOXacin [Levaquin] 750 mg PO QDAY #7 tablet 08/21/19 Unknown Rx metroNIDAZOLE [Flagyl] 500 mg PO Q8HR #21 tablet 08/21/19 Unknown Rx Saccharomyces Boulardii [Florastor] 250 mg PO DAILY #30 capsule 09/06/19 Unknown Rx Allergies Allergy/AdvReac Type Severity Reaction Status Date / Time No Known Allergies Allergy Unverified 08/19/19 10:40 ED Review of Systems ROS: Stated complaint: ABD PAIN Other details as noted in HPI Comment: All other systems reviewed and negative ED Past Medical Hx - Past Medical History Previous Medical History?: Yes Hx Hypertension: Yes Hx Diabetes: Yes Hx Arthritis: No Hx Dementia: No - Surgical History Past Surgical History?: Yes Additional Surgical History: appendectomy - Family History Family history: no significant - Social History Smoking Status: Never Smoker Substance Use Type: None - Medications Home Medications: Home Medications Medication Instructions Recorded Confirmed Last Taken Type Amlodipine Besylate [Norvasc] 10 mg PO QDAY 08/19/19 08/19/19 08/18/19 History Aspirin 325 mg PO QDAY 08/19/19 08/19/19 08/18/19 History Doxycycline Hyclate [Doxycycline 100 mg PO Q12HR 08/19/19 08/19/19 08/18/19 History Hyclate TAB] Losartan [Cozaar] 50 mg PO QDAY 08/19/19 08/19/19 08/18/19 History Triamcinolone Aceton 0.1% (Nf) 1 applic TP BID 08/19/19 08/19/19 08/18/19 Histo ry [Kenalog (NF)] levoFLOXacin [Levaquin] 750 mg PO QDAY #7 tablet 08/21/19 Unknown Rx metroNIDAZOLE [Flagyl] 500 mg PO Q8HR #21 tablet 08/21/19 Unknown Rx Saccharomyces Boulardii [Florastor] 250 mg PO DAILY #30 capsule 09/06/19 Unknown Rx ED Physical Exam - General Limitations: No Limitations General appearance: alert, in no apparent distress - Head Head exam: Present: atraumatic, normocephalic - Eye Eye exam: Present: normal appearance - ENT ENT exam: Present: mucous membranes moist - Neck Neck exam: Present: normal inspection - Respiratory Respiratory exam: Present: normal lung sounds bilaterally. Absent: respiratory distress - Cardiovascular Cardiovascular Exam: Present: regular rate, normal rhythm. Absent: systolic murmur, diastolic murmur, rubs, gallop - GI/Abdominal GI/Abdominal exam: Present: soft, normal bowel sounds - Rectal Rectal exam: Present: deferred - Extremities Exam Extremities exam: Present: normal inspection - Back Exam Back exam: Present: normal inspection - Neurological Exam Neurological exam: Present: alert, oriented X3 - Psychiatric Psychiatric exam: Present: normal affect, normal mood - Skin Skin exam: Present: warm, dry, intact, normal color. Absent: rash ED Course Vital Signs 09/06/19 09/06/19 09/06/19 07:42 08:33 08:45 Temperature 97.2 F L Pulse Rate 97 H 84 84 Respiratory 16 10 L 15 Rate Blood Pressure 126/68 137/64 O2 Sat by Pulse 94 100 98 Oximetry 09/06/19 09/06/19 09/06/19 09:01 09:15 09:30 Temperature Pulse Rate 91 H 81 84 Respiratory 13 15 19 Rate Blood Pressure 154/61 154/61 142/65 O2 Sat by Pulse 99 99 98 Oximetry 09/06/19 09/06/19 09:45 10:00 Temperature Pulse Rate 86 91 H Respiratory 13 11 L Rate Blood Pressure 148/71 139/70 O2 Sat by Pulse 99 99 Oximetry ED Medical Decision Making - Lab Data Result diagrams: 09/06/19 07:54 09/06/19 07:54 - Medical Decision Making Labs 09/06/19 09/06/19 07:54 07:54 WBC 8.8 RBC 4.78 Hgb 13.3 Hct 41.0 MCV 86 MCH 28 MCHC 33 RDW 13.5 Plt Count 196 Lymph % (Auto) 20.5 Hendricks % (Auto) 12.9 H Eos % (Auto) 1.1 Baso % (Auto) 0.7 Lymph # 1.8 Hendricks # 1.1 H Eos # 0.1 Baso # 0.1 Seg Neutrophils % 64.8 Seg Neutrophils # 5.7 Sodium 135 L Potassium 4.4 Chloride 98.8 Carbon Dioxide 22 Anion Gap 19 BUN 15 Creatinine 1.0 Estimated GFR > 60 BUN/Creatinine Ratio 15 Glucose 195 H Calcium 9.5 Total Bilirubin 0.30 AST 17 ALT 15 Alkaline Phosphatase 60 Total Protein 7.3 Albumin 3.7 L Albumin/Globulin Ratio 1.0 Vital Signs 09/06/19 09/06/19 09/06/19 07:42 08:33 08:45 Temperature 97.2 F L Pulse Rate 97 H 84 84 Respiratory 16 10 L 15 Rate Blood Pressure 126/68 137/64 O2 Sat by Pulse 94 100 98 Oximetry EMR was reviewed from recent hospital stay. GI note reviewed. CT noted. Patient states he was not given follow-up instructions. Patient was given numerous GI doctor options for follow-up as soon as possible. Labs were noted hemoglobin is stable. Vital signs are stable. Patient is taking p.o. I have spent quite a bit of time with the patient outlining his discharge plan of care. He verbalizes understanding. On discharge vital signs are stable, patient is ambulatory and taking p.o. He verbalizes understanding of the plan of care. He has his 2 home medications that were prescribed on discharge from the hospital. I've asked him to take Pepcid [id number] twice a day. And he is got a call today to make a GI appointment for first available appointment - Differential Diagnosis Rule out ongoing GI bleed Critical care attestation.: If time is entered above; I have spent that time in minutes in the direct care of this critically ill patient, excluding procedure time. ED Disposition Clinical Impression: Colitis, Abdominal pain Disposition: TO HOME OR SELFCARE Is pt being admited?: No Does the pt Need Aspirin: No Condition: Stable Additional Instructions: CONTINUE ALL YOUR HOME MEDS INCLUDING THE 2 ANTIBIOTICS YOU GOT YESTERDAY BLAND DIET AND ADVANCE TOLERATED HYDRATE WELL WITH WATER AVOID MOTRIN FOLLOW UP WITH [facility] REN[facility] ESCOBEDO GIVEN YOU A LOCAL PCP WELL SEE REFERRALS BELOW SEE GI RENATA REFERRALS BELOW TAKE OVER THE COUNTER PEPCID 20 MG EVERY AM AND EVERY NIGHT Prescriptions: Saccharomyces Boulardii [Florastor] 250 mg PO DAILY #30 capsule Referrals: [facility] [Other] - 3-5 Days KOLTON ROJAS MD [Staff Physician] - 3-5 Days BEATRIZ BALDERAS MD [Staff Physician] - 3-5 Days TOÑO KUO MD [Staff Physician] - 3-5 Days MELANY CHESTER MD [Staff Physician] - 3-5 Days Time of Disposition: 09:46
[2019-09-06 10:04] VITALS: BP 139/70
[2019-09-06 10:26] LABS: Bacteria,Urine 1+ /HPF (Negative); Bilirubin,Urine NEG (Negative); Blood,Urine NEG (Negative); Color,Urine Yellow (Yellow); Protein,Urine <15 mg/dL mg/dL (Negative); Urobilinogen,Urine < 2.0 mg/dL (<2.0); WBC,Urine < 1.0 /HPF (0.0-6.0)
== END 2019-09-06 10:23 | disposition home or self-care (01) ==
LOC: ED 07:31
DX: K52.89 Other specified noninfective gastroenteritis and colitis (principal); I10 Essential (primary) hypertension; E11.9 Type 2 diabetes mellitus without complications; Z90.49 Acquired absence of other specified parts of digestive tract; Z79.899 Other long term (current) drug therapy
CPT/HCPCS: 36415; 80053; 81001; 85025

== ENCOUNTER 2020-10-12 13:19 | Emergency (ER) | payer OTHER, MEDICARE ==
[2020-10-12] MEDS ORDERED: SODIUM CHLORIDE 0.9% 1000 ML 1,000 ML IV ONE ×2 (13:37→15:16)
[2020-10-12 14:15] LABS: Basophils % (Auto) 0.5 % (0.0-1.8); Eosinophils % (Auto) 0.4 % (0.0-4.3); Hematocrit 45.7 % (35.5-45.6); Hemoglobin 15.7 gm/dl (11.8-15.2); Lymphocytes # (Auto) 0.8 K/mm3 (1.2-5.4); Lymphocytes % (Auto) 8.8 % (13.4-35.0); Mean Corpuscular HGB Conc 35 % (32-34); Mean Corpuscular Volume 86 fl (84-94); Monocytes # (Auto) 1.1 K/mm3 (0.0-0.8); Monocytes % (Auto) 11.1 % (0.0-7.3); Platelet Count 143 K/mm3 (140-440); Red Blood Count 5.34 M/mm3 (3.65-5.03); Red Cell Distribution Width 13.3 % (13.2-15.2)
[2020-10-12 14:38] LABS: Alanine Aminotransferase 17 units/L (7-56); Albumin 3.8 g/dL (3.9-5); BUN/Creatinine Ratio 9; Blood Urea Nitrogen 8 mg/dL (9-20); Calcium 9.1 mg/dL (8.4-10.2); Hemolysis Index 8
[2020-10-12 15:35] LABS: Bilirubin,Urine NEG (Negative); Blood,Urine NEG (Negative); Color,Urine Straw (Yellow); Protein,Urine <15 mg/dL mg/dL (Negative); RBC,Urine < 1.0 /HPF (0.0-6.0); Urobilinogen,Urine < 2.0 mg/dL (<2.0); WBC,Urine < 1.0 /HPF (0.0-6.0)
[2020-10-12 17:19] VITALS: BP 149/68
--- NOTE | 2020-10-12 17:20 | Emergency Department Report ---
ED Dizziness HPI - General Chief Complaint: Dizziness Stated Complaint: DIZZY Time Seen by Provider: 10/12/20 13:27 Source: EMS Mode of arrival: Stretcher Limitations: Altered Mental Status - History of Present Illness Initial Comments: Patient is 80-year-old F [place] male with past medical history of hypertension and diabetes who states that he has been eating less especially in the mornings lately. He is complaining of some dizziness upon standing for approximately the last month. Patient denies any nausea vomiting diarrhea fevers chills cough cold or congestion at this time. - Related Data Home Medications Medication Instructions Recorded Confirmed Last Taken Amlodipine Besylate [Norvasc] 10 mg PO QDAY 08/19/19 08/19/19 08/18/19 Aspirin 325 mg PO QDAY 08/19/19 08/19/19 08/18/19 Doxycycline Hyclate [Doxycycline 100 mg PO Q12HR 08/19/19 08/19/19 08/18/19 Hyclate TAB] Losartan [Cozaar] 50 mg PO QDAY 08/19/19 08/19/19 08/18/19 Triamcinolone Aceton 0.1% (Nf) 1 applic TP BID 08/19/19 08/19/19 08/18/19 [Kenalog (NF)] Previous Rx's Medication Instructions Recorded Last Taken Type levoFLOXacin [Levaquin] 750 mg PO QDAY #7 tablet 08/21/19 Unknown Rx metroNIDAZOLE [Flagyl] 500 mg PO Q8HR #21 tablet 08/21/19 Unknown Rx Saccharomyces Boulardii [Florastor] 250 mg PO DAILY #30 capsule 09/06/19 Unknown Rx Allergies Allergy/AdvReac Type Severity Reaction Status Date / Time No Known Allergies Allergy Unverified 08/19/19 10:40 ED Review of Systems ROS: Stated complaint: DIZZY Other details as noted in HPI Comment: All other systems reviewed and negative ED Past Medical Hx - Past Medical History Previous Medical History?: Yes Hx Hypertension: Yes Hx Diabetes: Yes Hx Arthritis: No Hx Dementia: No - Surgical History Additional Surgical History: appendectomy - Social History Smoking Status: Never Smoker Substance Use Type: None - Medications Home Medications: Home Medications Medication Instructions Recorded Confirmed Last Taken Type Amlodipine Besylate [Norvasc] 10 mg PO QDAY 08/19/19 08/19/19 08/18/19 History Aspirin 325 mg PO QDAY 08/19/19 08/19/19 08/18/19 History Doxycycline Hyclate [Doxycycline 100 mg PO Q12HR 08/19/19 08/19/19 08/18/19 History Hyclate TAB] Losartan [Cozaar] 50 mg PO QDAY 08/19/19 08/19/19 08/18/19 History Triamcinolone Aceton 0.1% (Nf) 1 applic TP BID 08/19/19 08/19/19 08/18/19 History [Kenalog (NF)] levoFLOXacin [Levaquin] 750 mg PO QDAY #7 tablet 08/21/19 Unknown Rx metroNIDAZOLE [Flagyl] 500 mg PO Q8HR #21 tablet 08/21/19 Unknown Rx Saccharomyces Boulardii [Florastor] 250 mg PO DAILY #30 capsule 09/06/19 Unknown Rx ED Physical Exam - General Limitations: Altered Mental Status General appearance: alert, in no apparent distress - Head Head exam: Present: atraumatic, normocephalic - Eye Eye exam: Present: normal appearance - ENT ENT exam: Present: normal orophraynx, mucous membranes moist - Neck Neck exam: Present: normal inspection - Respiratory Respiratory exam: Present: normal lung sounds bilaterally. Absent: respiratory distress, wheezes, rales, rhonchi - Cardiovascular Cardiovascular Exam: Present: regular rate, normal rhythm. Absent: systolic murmur, diastolic murmur, rubs, gallop - GI/Abdominal GI/Abdominal exam: Present: soft, normal bowel sounds - Rectal Rectal exam: Present: deferred - Extremities Exam Extremities exam: Present: normal inspection - Back Exam Back exam: Present: normal inspection - Neurological Exam Neurological exam: Present: alert, oriented X3 - Psychiatric Psychiatric exam: Present: normal affect, normal mood - Skin Skin exam: Present: warm, dry, intact, normal color. Absent: rash ED Course Vital Signs 10/12/20 10/12/20 10/12/20 13:34 13:35 13:36 Temperature 98.4 F 98.4 F Pulse Rate 80 80 Respiratory 14 18 14 Rate Blood Pressure 136/73 Blood Pressure 136/73 [Left] O2 Sat by Pulse 98 98 Oximetry ED Medical Decision Making - Lab Data Result diagrams: 10/12/20 13:53 10/12/20 13:53 Lab Results 10/12/20 10/12/20 10/12/20 Range/Units 13:53 13:53 15:22 WBC 9.6 (4.5-11.0) K/mm3 RBC 5.34 H (3.65-5.03) M/mm3 Hgb 15.7 H (11.8-15.2) gm/dl Hct 45.7 H (35.5-45.6) % MCV 86 (84-94) fl MCH 29 (28-32) pg MCHC 35 H (32-34) % RDW 13.3 (13.2-15.2) % Plt Count 143 (140-440) K/mm3 Lymph % (Auto) 8.8 L (13.4-35.0) % Moody % (Auto) 11.1 H (0.0-7.3) % Eos % (Auto) 0.4 (0.0-4.3) % Baso % (Auto) 0.5 (0.0-1.8) % Lymph # (Auto) 0.8 L (1.2-5.4) K/mm3 Moody # (Auto) 1.1 H (0.0-0.8) K/mm3 Eos # (Auto) 0.0 (0.0-0.4) K/mm3 Baso # (Auto) 0.0 (0.0-0.1) K/mm3 Seg Neutrophils % 79.2 H (40.0-70.0) % Seg Neutrophils # 7.6 (1.8-7.7) K/mm3 Sodium 140 (137-145) mmol/L Potassium 3.5 L (3.6-5.0) mmol/L Chloride 101.9 (98-107) mmol/L Carbon Dioxide 28 (22-30) mmol/L Anion Gap 14 mmol/L BUN 8 L (9-20) mg/dL Creatinine 0.9 (0.8-1.3) mg/dL Estimated GFR > 60 ml/min BUN/Creatinine Ratio 9 % Glucose 113 H (75-100) mg/dL Calcium 9.1 (8.4-10.2) mg/dL Total Bilirubin 0.40 (0.1-1.2) mg/dL AST 17 (5-40) units/L ALT 17 (7-56) units/L Alkaline Phosphatase 68 (35-129) units/L Total Protein 7.1 (6.3-8.2) g/dL Albumin 3.8 L (3.9-5) g/dL Albumin/Globulin Ratio 1.2 % Urine Color Straw (Yellow) Urine Turbidity Clear (Clear) Urine pH 8.0 H (5.0-7.0) Ur Specific [place] 1.005 (1.003-1.030) Urine Protein <15 mg/dl (Negative) mg/dL Urine Glucose (UA) 50 (Negative) mg/dL Urine Ketones Neg (Negative) mg/dL Urine Blood Neg (Negative) Urine Nitrite Neg (Negative) Urine Bilirubin Neg (Negative) Urine Urobilinogen < 2.0 (<2.0) mg/dL Ur Leukocyte Esterase Neg (Negative) Urine WBC (Auto) < 1.0 (0.0-6.0) /HPF Urine RBC (Auto) < 1.0 (0.0-6.0) /HPF - Medical Decision Making Patient's laboratory studies appear within normal limits. Patient's shows no signs or symptoms of infection. [employer] his heart rate went up approximately 18. He was given 2 L normal saline states he feels somewhat better. Patient will be discharged home in stable condition. Critical care attestation.: If time is entered above; I have spent that time in minutes in the direct care of this critically ill patient, excluding procedure time. ED Disposition Clinical Impression: Mild dehydration Disposition: DC-01 TO HOME OR SELFCARE Is pt being admited?: No Does the pt Need Aspirin: No Condition: Stable Instructions: Dehydration, Adult, [id number] Referrals: PRIMARY CARE, [Primary Care Provider] - 3-5 Days Time of Disposition: 17:19
== END 2020-10-12 19:51 | disposition home or self-care (01) ==
LOC: ED 13:19
DX: E86.0 Dehydration (principal); I10 Essential (primary) hypertension; E11.9 Type 2 diabetes mellitus without complications; Z90.49 Acquired absence of other specified parts of digestive tract; Z79.899 Other long term (current) drug therapy
CPT/HCPCS: 36415; 80053; 81001; 85025; 96360; 96361; 99284; J7030